=== PATIENT | female | born 1960 | race Caucasian/White ===

== ENCOUNTER 2025-04-20 13:09 | Outpatient (CLI) | payer OTHER | END 2025-04-20 13:12 | disposition home or self-care (01) | LOC: SONOGRAMA 13:09 | PROVIDERS: ATTEND Pathology Anatomic Pathology | DX: D34 Benign neoplasm of thyroid gland (principal); E07.89 Other specified disorders of thyroid; E04.1 Nontoxic single thyroid nodule ==